=== PATIENT | male | born 1960 | race Caucasian/White ===

== ENCOUNTER 2017-12-20 01:42 | Inpatient (IN) | payer OTHER ==
[~2017-12-20] VITALS: Ht 175.3 cm; Wt 124.3 kg
[~2017-12-20 01:42] MED LIST: DIOVAN80 M1 PO; TRAMADOL HCL50 M1 PO
--- NOTE | 2017-12-20 12:53 | Admission Core Measures ---
Acute Coronary Syndrome (CM) ACS Core Measures Acute Coronary Syndrome Diagnosis No Congestive Heart Failure (NEW) CHF Core Measures Congestive Heart Failure Diagnosis No Cerebrovascular Accident (NEW) CVA Core Measures CVA/TIA Diagnosis No Venous Thromboembolism VTE Core Liana (View Protocol) VTE Risk Factors Surgery No Mechanical VTE Prophylaxis d/t N/A MechProphylax Ordered No VTE Pharm Prophylaxis d/t NA PharmProphylax ordered Problem List As ranked by this Provider includes Assessment & Plan 1. Unilateral primary osteoarthritis, right hip HOME MEDS Home Med List Tramadol HCl 50 MG TABLET 1 TAB PO Q6P PRN PAIN (Reported) Valsartan (Diovan) 80 MG TABLET 1 TAB PO DAILY BP (Reported)
[2017-12-20] MEDS ORDERED: ASPIRIN EC325 M2 PO (12:56)
[2017-12-20] MEDS ORDERED: DILAUDID2 M1 PO (12:56)
[2017-12-20] MEDS ORDERED: MS CONTIN30 M1 PO (12:56)
[2017-12-20] MEDS ORDERED: COLACE100 M1 PO (12:56)
[2017-12-20] MEDS ORDERED: PRILOSEC OTC20 M1 PO (12:56)
[2017-12-20] MEDS ORDERED: MIRALAX17 G1 PO (12:56)
--- NOTE | 2017-12-20 12:58 | Patient Discharge Instructions ---
Discharge Instructions General Discharge Information You were seen/treated for: Right hip pain related to unilateral primary osteoarthritis You had these procedures: Right total hip replacement Watch for these problems: Increasing pain despite the use of pain medication Increasing redness, warmth or swelling Drainage of any type from incision Inability to bear weight on operative leg Persistent nausea and vomiting Fever greater than 101.5 degrees Do not soak the wound: Yes No bath, but you may shower: Yes Other wound care: Please keep wound clean and dry. No ointments or lotions of any type on or near incision at any time. No exceptions. Your dressing will be changed by your nurse on the second day after your surgery. Daily dry dressing changes are recommended each day thereafter. Do not soak your wound in a bath at any time until otherwise indicated by your surgeon. You may shower, please dry wound immediately after shower with a clean towel. Special Instructions: Aspirin: You are taking this medication to help prevent blood clot formation. Please take with food to protect your stomach lining. Please take as directed. Constipation: Pain medication can cause constipation. Dr. Adam has recommended that you take Colace and miralax each day. You may discontinue this medication if you develop loose stool or diarrhea. If you wish to continue this medication, it is available over the counter. If you are unable to move your bowels after several days, if you are unable to pass gas and are developing bloating, nausea, or vomiting as a result, please contact your doctor. Diet Continue normal diet: Yes Recommended Diet: Regular Acute Coronary Syndrome Inclusion Criteria At DC or during hospital stay patient has or had the following: ACS DIAGNOSIS No Discharge Core Measures Meds if any: Prescribed or Continued at Discharge Meds if any: NOT Prescribed or Continued at Discharge Congestive Heart Failure Inclusion Criteria At DC or during hospital stay patient has or had the following: CHF DIAGNOSIS No Discharge Core Measures Meds if any: Prescribed or Continued at Discharge Meds if any: NOT Prescribed or Continued at Discharge Cerebrovascular accident Inclusion Criteria At DC or during hospital stay patient has or had the following: CVA/TIA Diagnosis No Discharge Core Measures Meds if any: Prescribed or Continued at Discharge Meds if any: NOT Prescribed or Continued at Discharge Venous thromboembolism Inclusion Criteria VTE Diagnosis No VTE Type NONE VTE Confirmed by (Test) NONE Discharge Core Measures - Per Current guidelines, there needs to be overlap - treatment for the first 5 days of Warfarin therapy. - If discharged on Warfarin prior to 5 days of - overlap therapy, the patient will need to be - assessed for post discharge needs including - *Post discharge parental anticoagulation - *Warfarin and/or parental anticoagulation education - *Follow up date to check INR post discharge At least 5 days overlap therapy as Inpatient No Meds if any: Prescribed or Continued at Discharge Note: Overlap Therapy is Warfarin and Anticoagulant Meds if any: NOT Prescribed or Continued at Discharge
--- NOTE | 2017-12-20 13:00 | Surgical Discharge Summary ---
Visit Information Visit Dates Admission Date: 12/20/17 Discharge Date: 12/21/17 History of Present Illness Chief Complaint: Right hip pain related to unilateral primary osteoarthritis Surgical History Pertinent Surgical History: non-contributory Review of Systems: See H&P Hospital Course Course Attending Physician: Neno Adam MD Primary Care Physician: Ramirez CADET,[facility] Course: Patient was admitted to the hospital for an elective total joint replacement. The procedure was tolerated well and patient was transferred to a general surgical floor. Diet was advanced and tolerated, and the patient voided spontaneously. The patient was evaluated and treated by physical therapy. At the time of hospital discharge, the vital signs were stable, neurovascular status was intact, and pain was controlled with the use of oral pain medications. Allergies: Coded Allergies: No Known Allergies (12/18/17) Disposition Summary Disposition Principal Diagnosis: Right hip unilateral primary osteoarthritis Additional Diagnosis: None Discharge Disposition: home health services Discharge Instructions General Discharge Information Code Status: Full Code Patient's Diet: Regular, advance as tolerated Patient's Activity: Weight-bear as tolerated Follow-Up Instructions/Appts: Follow up with Dr. Adam in 6 weeks from date of surgery. Please call his office to arrange and/or confirm this appointment. Medications at Discharge Discharge Medications: Stop taking the following medications: Tramadol HCl (Tramadol HCl) 50 MG TABLET ORAL EVERY SIX HOURS NEEDED as needed for PAIN Continue taking these medications: Valsartan (Diovan) 80 MG TABLET 1 Tablet ORAL DAILY Start taking the following new medications: Aspirin (Ecotrin*) 325 MG TABLET.DR 1 Tablet ORAL TWICE DAILY Qty = 60 No Refills Docusate Sodium (Colace) 100 MG CAPSULE 1 Capsule ORAL TWICE DAILY Qty = 14 No Refills Instructions: DISCONTINUE USE IF YOU DEVELOP LOOSE STOOL OR DIARRHEA Polyethylene Glycol 3350 (Miralax) 17 GRAM POWD.PACK 1 Packet ORAL DAILY Qty = 7 No Refills Instructions: dissolve in water, DISCONTINUE USE IF YOU DEVELOP LOOSE STOOL OR DIARRHEA Hydromorphone HCl (Dilaudid) 2 MG TABLET 1-2 Tablet ORAL EVERY 4-6 HOURS NEEDED as needed for PAIN Qty = 36 No Refills Morphine Sulfate (Ms Contin) 30 MG TABLET.ER 1 Tablet ORAL TWICE DAILY Qty = 4 No Refills Omeprazole Magnesium (Prilosec Otc) 20 MG TABLET.DR 1 Tablet ORAL DAILY Qty = 30 No Refills
--- NOTE | 2017-12-20 14:28 | PN- Orthopedic ---
Subjective Subjective: POST-OP NOTE No complaints. Some residual numbness of his leg, currently in recovery / pacu. Tolerating diet. No nausea. Denies dizziness. No shortness of breath. No chest pains. Not yet out of bed. Due to void this evening. Objective Vital Signs and I&Os pacu flowsheet reviewed, vss Physical Exam: General - alert & oriented x 3. comfortable. no acute distress. Lungs - clear bilaterally. no w/r/r. Cardiac - s1s2. reg. Abdomen - soft. nontender. Extremities - warm bilaterally. no c/c/e. R hip dressing c/d/i. no hematoma. no drains. ice pack in place. athrombics active b/l. sensation grossly intact b/l lower legs, with +df/pf. calves soft and nontender b/l. Current Medications: Current Medications Sig/Michael Start time Last Medication Dose Route Stop Time Status Admin Acetaminophen 0 .STK-MED ONE 12/20 0955 DC PO Acetaminophen 975 MG ONCE 12/20 0000 NR PO 12/20 2358 Cefazolin Sodium 3,000 MG ONCE 12/20 0000 NR IV 12/20 2358 Losartan Potassium 25 MG DAILY 12/21 1000 AC PO Oxycodone HCl 0 .STK-MED ONE 12/20 0954 DC PO Oxycodone HCl 10 MG ONCE 12/20 0000 NR PO 12/20 2358 Assessment/Plan Assessment/Plan This 57 year old male with hx htn is POD#0 s/p right total hip replacement for primary osteoarthritis advance diet as tolerated pain medication as ordered monitor return of motor / sensory function due to void this evening awaiting PT eval asa bid - dvt ppx ayan-operative ancef x 2 doses d/c planning will d/w Core Measures Venous Thromboembolism VTE Risk Factors Surgery No Mechanical VTE Prophylaxis d/t N/A MechProphylax Ordered No VTE Pharm Prophylaxis d/t NA PharmProphylax ordered
--- NOTE | 2017-12-20 14:41 | RADIOLOGY REPORT ---
EXAMINATION: XR HIP, RIGHT CLINICAL INFORMATION: Status post right total hip arthroplasty. COMPARISON: None. TECHNIQUE: AP and cross table lateral views of the right hip were obtained. The crosstable view is suboptimal due to patient body habitus and technique. FINDINGS: The study demonstrates a right total hip arthroplasty which appears to be in good anatomic position. The hardware appears intact. There are no acute osseous findings. There are postoperative soft tissue changes. IMPRESSION: 1. Status post right total hip arthroplasty with hardware in good position.
--- NOTE | 2017-12-20 14:56 | Operative Report ---
Operative/Inv Procedure Report Surgery Date: 12/20/17 Name of Procedure: Right total hip replacement Pre-Operative Diagnosis: Primary right hip DJD Post-Operative Diagnosis: Same Estimated Blood Loss: 300 Surgeon/Manager Account Management: Kia CADET,Neno Olmedo Anesthesia: block Operative/Procedure Note Note: Description of Procedure: The patient was taken to the operating room and positively identified. After induction of spinal anesthesia and administration of appropriate pre-operative antibiotics, the patient was positioned supine on the operating room table and all bony prominences were well padded. After performing a surgical timeout, the right lower extremity was prepped and draped in the usual sterile fashion. A direct anterior approach was made to the right hip. The incision was carried sharply through superficial soft tissues to the level of the fascia. Meticulous hemostasis was maintained with Bovie electocautery. The fascia over the tensor fascia zeke muscle was opened sharply and the interval between the TFL and the sartorius was entered bluntly taking care to stay lateral to the lateral femoral cutaneous nerve. Retractors were placed around the femoral neck and the pericapsular fat was identified. The ascending branches of the lateral femoral circumflex vessels were identified and carefully coagulated. The pericapsular fat and anterior capsule were then resected. A napkin ring osteotomy was performed and the femoral head was removed without difficulty. Attention was then turned to the acetabulum. After appropriate placement of retractors, the acetabulum was exposed. Soft tissue was cleaned from the acetabular margin and notch. Overhanging osteophytes were removed and the teardrop was exposed. The acetabulum was then sequentially reamed to accept a 58 mm Jayy Tritanium hemispherical solid shell. This was impacted into place in the appropriate position and fitted with a 36 mm Trident X3 zero degree polyethylene insert. Attention was then turned to the femur. After performing the appropriate ligament releases, the proximal femur was exposed. It was then sequentially broached to accept a size 6 Jayy Accolade 2 stem. This was trialed for leg length and stability. The trial component was removed and the final component was impacted into place. The trunnion was carefully cleaned and fit with a 36 mm, -2.5 Biolox delta ceramic femoral head. The hip was reduced and put through a full range of motion and found to be stable. The articular space was then irrigated with sterile saline. The periarticular soft tissues were infilitrated with Marcaine. The fascial layer was closed with interrupted #1 vicryl suture and the skin was re-approximated with interrupted 2 -0 vicryl. The skin was closed with a running 3-0 V-Lock suture. Steri-strips and a sterile dressing were applied. The patient was awakened and taken to the recovery room in satisfactory condition.
[2017-12-20 16:10] VITALS: BP 132/78
[2017-12-20 18:00] VITALS: BP 130/82
[2017-12-20 20:00] VITALS: BP 130/80
[2017-12-20 22:00] VITALS: BP 134/82
[2017-12-21 01:35] VITALS: BP 126/80
[2017-12-21 06:03] VITALS: BP 122/62
--- NOTE | 2017-12-21 07:31 | PN- Student ---
See Addendum Manan Burrell 12/21/17 1312: Subjective Subjective: "I feel a lot better, I want to go home later today if I can walk." Pt states he has 2/10 dull pain when supine and 6/10 throbbing pain when moving or pressure is applied to RUL. He is tolerating regular diet well, + urination, - flatus/- BM. Yesterday pt attempted to walk with PT but nerve block was still intact and pt states he was unable to feel his leg/foot inhibiting him from completing activities. Denies: H/A, vision changes, SOB, chest pain, NVD, abd pain, paresthesia or syncope. Objective Objective: GEN: Pt lying supine in bed, A+Ox3, NAD. Pleasant affect. RESP: Good resp effort, CTAB. CARDIO: RRR, no MRG, S1/S2 audible throughout. ABD: Soft, NTND, no bowel sounds audible. MUSC: Island dressing in place on RUL. CDI. Moderate pain to palpation. Pt able to flex/extend knee, ankle and toes without difficulty. Distal pulses palpable bilaterally. Compression devices on LE bilaterally, nontender, nonedematous. NEURO: Sensation intact throughout. Results Results: Laboratory Tests 12/21/17 0705: Sodium Pending, Potassium Pending, Chloride Pending, Carbon Dioxide Pending, Anion Gap Pending, BUN Pending, Creatinine Pending, BUN/Creatinine Ratio Pending , CBC w Diff Pending, WBC Pending, RBC Pending, Hgb Pending, Hct Pending, MCV Pending, MCH Pending, MCHC Pending, RDW Pending, Plt Count Pending, MPV Pending Assessment/Plan Assessment: Emiliano is a 57yo M POD-1 s/p R THR r/t OA. Pt is recovering well from the procedure. Pt has increased sensation in RLE and is prepared for PT this am. Pt pain is managable with PO pain meds. Pt has no complaints or concerns at this time. Plan: Continue PO pain meds as ordered. PT consult this am. Encourage OOB amb. ASA DVT prophylaxis. Continue perioperative antibx coverage. Regular diet ordered. Wyatt Davis 12/21/17 3017: Resident Review Statement Resident Statement: examined this patient, amended to note Other Findings: agree w above. dc ivf PT today follow am labs pain controlled voided DC home if labs acceptable and clears PT. vna tomorrow, dressing change tomorrow asa for dvt ppx
[2017-12-21 08:50] LABS: ABSOLUTE BASOPHIL COUNT 0 /CUMM (0.0-0.2); ABSOLUTE EOSINOPHIL COUNT 0 /CUMM (0.0-0.7); ABSOLUTE GRANULOCYTE CT 11.8 /CUMM (1.4-6.5); ABSOLUTE LYMPH COUNT 1.6 /CUMM (1.2-3.4); ABSOLUTE MONOCYTE COUNT 1.3 /CUMM (0.10-0.60); BASOPHIL % 0.1 % (0.0-2.0); EOSINOPHIL % 0.3 % (0-5); GRANULOCYTE % 79.9 % (42.2-75.2); HEMATOCRIT 37.1 % (42-52); MEAN CORPUSCULAR HGB 28.9 PG (27.0-31.0); MEAN CORPUSCULAR HGB CONC 33.2 G/DL (33.0-37.0); MEAN CORPUSCULAR VOLUME 87.3 FL (80.0-94.0); MEAN PLATELET VOLUME 8.7 FL (7.4-10.4); PLATELET COUNT 304 /CUMM (130-400); RBC DISTRIBUTION WIDTH 15.5 % (11.5-14.5); RED BLOOD CELL CT 4.25 /CUMM (4.70-6.10); WHITE BLOOD CELL COUNT 14.8 /CUMM (4.8-10.8)
[2017-12-21 09:45] VITALS: BP 90/50
[2017-12-21 10:00] VITALS: BP 118/68
[2017-12-21 13:29] VITALS: BP 120/90
== END 2017-12-21 15:22 | disposition home health service (06) | DRG 470 ==
LOC: SDA 01:42 → ENRESERV 15:30 → ENTRNSPT 15:53 → EDTRNSPTSTS 16:02 → 2NB 16:07 → CMPTRNSPT 16:27 → ENTRNSPT 12-21 15:02 → EDTRNSPT 12-21 15:17 → EDTRNSPTSTS 12-21 15:17 → 2NB 12-21 15:22 → CMPTRNSPT 12-21 16:12
PROVIDERS: Nurse Practitioner
PROC: 0SR904A Replacement of Right Hip Joint with Ceramic on Polyethylene Synthetic Substitute, Uncemented, Open Approach (ICD-10-PCS; principal; 2017-12-20)
DX: M16.11 Unilateral primary osteoarthritis, right hip (principal); Z68.41 Body mass index [BMI] 40.0-44.9, adult; E66.9 Obesity, unspecified; E78.5 Hyperlipidemia, unspecified; I10 Essential (primary) hypertension; M25.751 Osteophyte, right hip
CPT/HCPCS: 2NBP; 36415; 73502-RT; 82436; 97110-GO; 97116-GO; 97161-GP; 97530-GO; J0131; J0690; J0735; J2405; J2550; J3490; J7042